=== PATIENT | male | born 2000 | race African-American/Black ===

== ENCOUNTER 2018-08-19 22:12 | Emergency (ER) | payer OTHER ==
--- NOTE | 2018-08-19 22:19 | ED Physician Documentation ---
PD HPI UPPER EXT INJURY - Stated complaint Stated Complaint: LT FINGER INJ - History obtained from History obtained from: Patient - History of Present Illness Location: Left, Finger Type of injury: Blunt / blow Timing - onset: How many hours ago (1) Timing - details: Abrupt onset Pain level now: 4 Improved by: Rest Worsened by: Moving Associated symptoms: Other (deformity). No: Weakness, Numbness, Tingling, Swelling, Discolored Similar symptoms before: Has not had sx before Recently seen: Not recently seen - Additonal information Additional information: approximately one hour prior to arrival, patient was playing basketball. The basketball struck the tip of his left fifth finger, and patient had sudden onset of pain and obvious deformity of the digit. Review of Systems Musculoskeletal: reports: Joint pain, Joint swelling Neurologic: denies: Focal weakness, Numbness PD PAST MEDICAL HISTORY - Past Medical History Past Medical History: No - Past Surgical History Past Surgical History: No - Allergies Allergies/Adverse Reactions: Allergies Allergy/AdvReac Type Severity Reaction Status Date / Time No Known Drug Allergies Allergy Verified 08/19/18 22:24 PD ED PE NORMAL - Vitals Vital signs reviewed: Yes - General General: Alert and oriented X 3, No acute distress, Well developed/nourished PD ED PE EXPANDED - Extremities Extremities: Deformity, Limited ROM, Other (left fifth finger with deformity and tenderness PIP joint) Results - Vitals Vitals: Oxygen O2 Source Room air - Rads (name of study) xrays left fifth finger Radiology: Prelim report reviewed, See rad report xrays left fifth finger post-reduction Radiology: Prelim report reviewed, See rad report Procedures - Reduction Body part reduced: Left, Finger Fracture or dislocation: Dislocation Anesthesia: Other (none) Reduction aftercare: NV intact, Xray confirms reduction, Alignment improved, Splint applied, Patient tolerated well, Other (traction-countertraction resulted in immediate reduction) PD MEDICAL DECISION MAKING - ED course Complexity details: reviewed results, re-evaluated patient, considered differential, d/w patient Departure - Departure Disposition: 01 Home, Self Care Clinical Impression: Finger dislocation Qualifiers: Encounter type: initial encounter Qualified Code(s): S63.259A - Unspecified dislocation of unspecified finger, initial encounter Condition: Good Instructions: ED Dislocation Finger Redu Follow-Up: PATRICIA Garduno [Provider Group] Discharge Date/Time: 08/19/18 23:27
--- NOTE | 2018-08-19 22:56 | XRAY Report ---
Reason: injury, deformity Procedure Date: 08/19/2018 Accession Number: [id number] / [id number] Procedure: XR - Finger(s) LT CPT Code: FULL RESULT: EXAM: LEFT FIFTH DIGIT RADIOGRAPHY EXAM DATE: 08/19/2018 10:35 PM. CLINICAL HISTORY: Injury, deformity. COMPARISON: None. TECHNIQUE: 3 views. FINDINGS: Bones: Normal. No fracture or bone lesion. Joints: Dorsal dislocation at the proximal interphalangeal joint. Soft Tissues: Soft tissue swelling. IMPRESSION: Dorsal dislocation of the middle phalanx from the proximal phalanx. No evident fracture. RADIA
--- NOTE | 2018-08-19 23:22 | XRAY Report ---
Reason: post-reduction Procedure Date: 08/19/2018 Accession Number: [id number] / [id number] Procedure: XR - Finger(s) LT CPT Code: FULL RESULT: EXAM: LEFT FIFTH DIGIT RADIOGRAPHY. EXAM DATE: 08/19/2018 10:49 PM. CLINICAL HISTORY: Post-reduction. COMPARISON: FINGER(S) LT 08/19/2018 10:20 PM. TECHNIQUE: 3 views. FINDINGS: Bones: Normal. No fracture or bone lesion. Joints: Anatomic postreduction fifth PIP joint alignment. Soft Tissues: Normal. No soft tissue swelling. IMPRESSION: Normal postreduction left fifth digit radiographs. RADIA
[2018-08-19 23:27] VITALS: BP 137/62
== END 2018-08-19 23:27 | disposition home or self-care (01) ==
LOC: ED 22:12
DX: S63.257A Unspecified dislocation of left little finger, initial encounter (principal); W21.05XA Struck by basketball, initial encounter; Y93.67 Activity, basketball
CPT/HCPCS: 26670; 73140; 99283

== ENCOUNTER 2020-02-11 03:42 | Emergency (ER) | payer OTHER ==
--- NOTE | 2020-02-11 03:43 | ED Physician Documentation ---
PD HPI ALTERED MENTAL STATUS - Stated complaint Stated Complaint: ETOH, AMS - History obtained from History obtained from: Patient, EMS - History of Present Illness Timing - onset: Today Quality / character: Agitated Contributing factors: Intoxicated Basline status: Alert and oriented X 3, Ambulatory, Independent Recently seen: Not recently seen - Additional information Additional information: BIBA in restraints. 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 Per medic report, 911 called because patient was yelling in the bathroom and had caused damage to the sink's plumbing and tore a door off its hinges. He was found to be agitated, crying and inconsolable, and unsteady to the point of nearly falling when trying to ambulate (per EMS, likely would have fallen at times during assessment if others were not there to prevent him from falling). Patient was handcuffed when EMS arrived because he was repeatedly trying to stand and ambulate but was too unsteady to do so, and he arrives in restraints for same reason; EMS says patient has not been combative or assaultive, but repeatedly trying to get off stretcher/gurney despite repeated attempts to redirect patient. Patient is crying and sobbing on arrival, repeatedly apologizing and asking to call friends and family but otherwise not providing answers to HPI/ROS questions (mostly asking to be allowed to call family and friends, apologizing, and telling me "I'm not crazy"). He has vomitus on his shirt and shorts. EMS was able to get fr om patient that he is upset due to recent event regarding patient's sister that might have involved overdose and/or suicide attempt. Review of Systems Unable to obtain: AMS, Intoxicated PD PAST MEDICAL HISTORY - Past Medical History Past Medical History: No - Allergies Allergies/Adverse Reactions: Allergies Allergy/AdvReac Type Severity Reaction Status Date / Time No Known Drug Allergies Allergy Verified 02/11/20 03:52 - Living Situation Living Situation: reports: Unknown Living Arrangement: reports: Other ([facility] barr[facility]) PD ED PE NORMAL - Vitals Vital signs reviewed: Yes - General General: Well developed/nourished - HEENT HEENT: Atraumatic, PERRL, EOMI - Neck Neck: Supple, no meningeal sign - Cardiac Cardiac: RRR, No murmur - Respiratory Respiratory: No respiratory distress, Clear bilaterally - Abdomen Abdomen: Soft, Non tender - Derm Derm: Normal color, Warm and dry - Neuro Eye Opening: Spontaneous Motor: Obeys Commands Verbal: None (does not answer orientation questions) GCS Score: 11 PD ED PE EXPANDED - General General: Other (crying, even sobbing at times, agitated but not combative and he is able to be redirected to sit on the stretcher. ) - Psych Psych: Intoxicated / AOB, Tearful, Agitated. No: Combative Results - Vitals Vitals: Vital Signs - 24 hr 02/11/20 02/11/20 02/11/20 03:47 03:52 08:54 Temperature 37.0 C 36.5 C Heart Rate 75 73 Respiratory 18 16 Rate Blood Pressure 137/87 H 132/82 H O2 Saturation 98 100 Oxygen O2 Source Room air - Labs Labs: Laboratory Tests 02/11/20 02/11/20 02/11/20 04:00 04:00 04:30 WBC RBC Hgb Hct MCV MCH MCHC RDW Plt Count MPV Neut # (Auto) Lymph # (Auto) Jay # (Auto) Eos # (Auto) Baso # (Auto) Absolute Nucleated RBC Nucleated RBC % Sodium Potassium Chloride Carbon Dioxide Anion Gap BUN Creatinine Estimated GFR (MDRD) Glucose Calcium Total Bilirubin AST ALT Alkaline Phosphatase Total Protein Albumin Globulin Albumin/Globulin Ratio Lipase TSH Urine Color YELLOW Urine Clarity CLEAR Urine pH 5.5 Ur Specific [place] 1.015 Urine Protein NEGATIVE Urine Glucose (UA) NEGATIVE Urine Ketones NEGATIVE Urine Occult Blood NEGATIVE Urine Nitrite NEGATIVE Urine Bilirubin NEGATIVE Urine Urobilinogen 0.2 (NORMAL) Ur Leukocyte Esterase NEGATIVE Ur Microscopic Review NOT INDICATED Urine Culture Comments NOT INDICATED Salicylates Urine Opiates Screen NEGATIVE Ur Oxycodone Screen NEGATIVE Urine Methadone Screen NEGATIVE Ur Propoxyphene Screen NEGATIVE Acetaminophen Ur Barbiturates Screen NEGATIVE Ur Tricyclics Screen NEGATIVE Ur Phencyclidine Scrn NEGATIVE Ur Amphetamine Screen NEGATIVE U Methamphetamines Scrn NEGATIVE U Benzodiazepines Scrn NEGATIVE Urine Cocaine Screen NEGATIVE U Cannabinoids Screen NEGATIVE Ethyl Alcohol 313.7 02/11/20 02/11/20 02/11/20 04:30 04:30 04:30 WBC 9.4 RBC 4.79 Hgb 14.5 Hct 42.2 MCV 88.1 MCH 30.3 MCHC 34.4 RDW 12.7 Plt Count 251 MPV 9.9 Neut # (Auto) 6.9 H Lymph # (Auto) 2.0 Jay # (Auto) 0.4 Eos # (Auto) 0.0 Baso # (Auto) 0.0 Absolute Nucleated RBC 0.00 Nucleated RBC % 0.0 Sodium 139 Potassium 4.0 Chloride 105 Carbon Dioxide 22 Anion Gap 12.0 BUN 11 Creatinine 1.1 Estimated GFR (MDRD) 102 Glucose 107 H Calcium 9.0 Total Bilirubin 0.8 AST 27 ALT 16 Alkaline Phosphatase 55 Total Protein 7.8 Albumin 4.5 Globulin 3.3 Albumin/Globulin Ratio 1.4 Lipase 23 TSH 0.81 Urine Color Urine Clarity Urine pH Ur Specific [place] Urine Protein Urine Glucose (UA) Urine Ketones Urine Occult Blood Urine Nitrite Urine Bilirubin Urine Urobilinogen Ur Leukocyte Esterase Ur Microscopic Review Urine Culture Comments Salicylates < 6.0 Urine Opiates Screen Ur Oxycodone Screen Urine Methadone Screen Ur Propoxyphene Screen Acetaminophen < 10 L Ur Barbiturates Screen Ur Tricyclics Screen Ur Phencyclidine Scrn Ur Amphetamine Screen U Methamphetamines Scrn U Benzodiazepines Scrn Urine Cocaine Screen U Cannabinoids Screen Ethyl Alcohol PD MEDICAL DECISION MAKING - ED course Complexity details: reviewed results, re-evaluated patient, considered differential ED course: On arrival, patient initially refused to transfer from EMS stretcher to ED stretcher until he was allowed to make phone calls to friends. After several minutes, he finally relented and shifted to ED stretcher, at which time he was provided his phone. He subsequently tried to leave ED but could not operate the door handle. I confronted him and asked that he get back onto the stretcher, as he seemed too upset and intoxicated to leave, and he did get back to room and on stretcher. He continued crying and sobbing and eventually tried to get off stretcher again; this time he nearly fell to the ground several times but staff was able to prevent him from falling (I witnessed this and he clearly would have fallen to ground if not for staff preventing this). Patient made phone calls to family and this seemed to provide him some comfort and distraction, and his command subsequently arrived. Patient's friend, whom he (patient) had called, arrived and stayed with patient for remainder of my ED shift. Patient given 2mg PO ativan and this had desired effect of sedation. Care of patient turned over to Dr. Paige at end of my shift; plan is to reevaluate patient when he is AAOx3 and sober to assess possible SI. During ED stay on my shift, patient made statements such as "I can't do this anymore", "I don't know if I want to be here". Whether he has actual suicidal thoughts or intent cannot be assessed during my shift due to significant alcohol intoxication.
[2020-02-11 04:08] LABS: MUDS CUTOFF CONCENTRATIONS CUTOFF CONC BELOW:
[2020-02-11 04:19] LABS: AMPHETAMINE SCREEN,URINE NEGATIVE (NEGATIVE); BENZODIAZEPINES SCREEN, URINE NEGATIVE (NEGATIVE); COCAINE SCREEN URINE NEGATIVE (NEGATIVE); METHADONE SCREEN, URINE NEGATIVE (NEGATIVE); METHAMPHETAMINES SCREEN, URINE NEGATIVE (NEGATIVE); OPIATE SCREEN, URINE NEGATIVE (NEGATIVE); OXYCODONE SCREEN, URINE NEGATIVE (NEGATIVE); PROPOXYPHENE SCREEN, URINE NEGATIVE (NEGATIVE); TRICYCLIC ANTIDEPRESSANT,URINE NEGATIVE (NEGATIVE)
[2020-02-11 05:02] LABS: BASOPHILS % (AUTO) 0.4 %; EOSINOPHILS % (AUTO) 0.1 %; HGB - HEMOGLOBIN 14.5 g/dL (14.0-18.0); MEAN CORPUSCULAR HEMOGLOBIN 30.3 pg (27.0-31.0); MEAN CORPUSCULAR HGB CONC 34.4 g/dL (32.0-36.0); MEAN CORPUSCULAR VOLUME 88.1 fL (80.0-94.0); MEAN PLATELET VOLUME 9.9 fL (7.4-11.4); MONOCYTES # (AUTO) 0.4 10^3/uL (0.0-1.0); MONOCYTES % (AUTO) 4.7 %; NEUTROPHILS # (AUTO) 6.9 10^3/uL (1.5-6.6); NEUTROPHILS % (AUTO) 73.5 %; PLT - PLATELET COUNT 251 10^3/uL (130-450); RED BLOOD COUNT 4.79 10^6/uL (4.70-6.10); RED CELL DISTRIBUTION WIDTH 12.7 % (12.0-15.0); WHITE BLOOD COUNT 9.4 x10^3/uL (4.8-10.8)
[2020-02-11 05:13] LABS: ACETAMINOPHEN < 10 ug/mL (10-30); ALBUMIN 4.5 g/dL (3.2-5.5); ALBUMIN/GLOBULIN RATIO 1.4 (1.0-2.2); ALKALINE PHOSPHATASE 55 IU/L (42-121); ALT ALANINE AMINOTRANSFERASE 16 IU/L (10-60); AST ASPARTATE AMINOTRANSFERASE 27 IU/L (10-42); BILIRUBIN,TOTAL 0.8 mg/dL (0.2-1.0); BUN - BLOOD UREA NITROGEN 11 mg/dL (6-20); CARBON DIOXIDE - CO2 22 mmol/L (21-32); CHLORIDE 105 mmol/L (101-111); CREATININE 1.1 mg/dL (0.6-1.2); GLUCOSE 107 mg/dL (70-100); LIPASE 23 U/L (22-51); SALICYLATE < 6.0 mg/dL; SODIUM 139 mmol/L (135-145); TOTAL PROTEIN 7.8 g/dL (6.7-8.2)
[2020-02-11 05:17] LABS: BILIRUBIN,URINE NEGATIVE (NEGATIVE); GLUCOSE, URINE (UA) NEGATIVE (NEGATIVE); KETONES,URINE (UA) NEGATIVE (NEGATIVE); LEUKOCYTE ESTERASE, URINE NEGATIVE (NEGATIVE); NITRITE,URINE NEGATIVE (NEGATIVE); OCCULT BLOOD,URINE NEGATIVE (NEGATIVE); PH,URINE 5.5 PH (5.0-7.5); PROTEIN,URINE NEGATIVE (NEGATIVE); UROBILINOGEN,URINE 0.2 (NORMAL) E.U./dL (NORMAL)
[2020-02-11 05:18] LABS: CLARITY,URINE CLEAR (CLEAR)
[2020-02-11] MEDS ORDERED: LORazepam 0.5 MG TABLET PO STA (05:26)
--- NOTE | 2020-02-11 12:02 | ED Physician Documentation ---
ED Addendum - Addendum Addendum: 02/11/20 12:00 Now more awake and alert. He had been still sleeping after change of shift initially and for several hours. He was arousable but still somewhat foggy and sleepy. He is now easily arousable and fully conversant. He denies any suicidal ideation. He states he is been feeling a little "down" about family issues. He does not have any history of major depression and no prior or current suicidal ideation. He is with a friend and the patient states he does feel comfortable talking to his coworkers about problems. At this point he is dischargeable Accompanied by his friend.
[2020-02-11 15:51] VITALS: BP 121/51
== END 2020-02-11 15:50 | disposition home or self-care (01) ==
LOC: EDBD → EDUNIT# → ED 03:42
DX: F10.129 Alcohol abuse with intoxication, unspecified (principal)
CPT/HCPCS: 36415; 80320; 80329; 81003; 83690; 99281; 99283; A9270; 80053; 80306; 80307; 81001; 84443; 85025; 87086

== ENCOUNTER 2021-07-09 06:52 | Emergency (ER) | payer OTHER ==
[2021-07-09 07:03] VITALS: BP 158/91
--- NOTE | 2021-07-09 07:32 | ED Physician Documentation ---
PD HPI LOWER EXT INJURY - Stated complaint Stated Complaint: R ANKLE INJ - Chief complaint Chief Complaint: Ext Problem - History obtained from History obtained from: Patient - History of Present Illness PD HPI LOW EXT INJURY LOCATION: Right, Ankle Type of injury: Fall, Twist Where injury occurred: Other (GYM) Timing - onset: Last night Timing - duration: Hours Timing - details: Abrupt onset, Still present Improved by: Rest, Ice, Immobilization Worsened by: Moving, Palpating Associated symptoms: Swelling. No: Weakness, Numbness, Tingling Contributing factors: No: Anticoagulated Similar symptoms before: Has not had sx before Recently seen: Not recently seen - Additional information Additional information: 20-year-old male was playing basketball yesterday when he came down and carroll his ankle. He states that somebody fell on top of him when this happened and he has pain and swelling to the lateral aspect of his ankle. He is having to limp to walk. Review of Systems Constitutional: denies: Fever Respiratory: denies: Cough GI: denies: Vomiting PD PAST MEDICAL HISTORY - Past Medical History Past Medical History: No Cardiovascular: None Respiratory: None Neuro: None Endocrine/Autoimmune: None GI: None : None HEENT: None Psych: None Musculoskeletal: None Derm: None - Past Surgical History Past Surgical History: Yes General: Appendectomy - Present Medications Home Medications: Ambulatory Orders Medication Instructions Recorded Confirmed No Known Home Medications 07/09/21 07/09/21 - Allergies Allergies/Adverse Reactions: Allergies Allergy/AdvReac Type Severity Reaction Status Date / Time No Known Drug Allergies Allergy Verified 07/09/21 07:02 - Social History Does the pt smoke?: Yes Smoking Status: Current every day smoker Does the pt drink ETOH?: Yes Does the pt have substance abuse?: No - Immunizations Immunizations are current?: Yes - POLST Patient has POLST: No PD ED PE NORMAL - Vitals Vital signs reviewed: Yes (Hypertensive) - General General: Alert and oriented X 3, No acute distress, Well developed/nourished - HEENT HEENT: Atraumatic, PERRL, EOMI - Respiratory Respiratory: No respiratory distress - Derm Derm: Normal color, Warm and dry, No rash - Extremities Extremities: No deformity, Other (There is swelling and point tenderness over the distal right fibula. 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 No acute fracture or dislocation. Radiographic findings suggestive of possible flexor tendon injury recommend clinical correlation.), EMP read indepedently, See rad report PD MEDICAL DECISION MAKING - ED course Complexity details: reviewed results, re-evaluated patient, considered differential, d/w patient ED course: 20 y/o male with a sprain to the right ankle is placed into an ankle air cast. Departure - Departure Disposition: 01 Home, Self Care Clinical Impression: Right ankle sprain Qualifiers: Encounter type: initial encounter Involved ligament of ankle: calcaneofibular ligament Qualified Code(s): S93.411A - Sprain of calcaneofibular ligament of right ankle, initial encounter Condition: Stable Instructions: ED Sprain Ankle W X Ray Follow-Up: PATRICIA Garduno [Provider Group] Comments: Claus, today it looks like you have sprained your ankle and you will likely have some swelling and tenderness associated with this and will have some difficulty walking which will improve day by day. I expect that in about 3 days time you will not require your crutches any longer. Wear the splint for at least 2 weeks and if you are doing heavy physical activity wear the splint in your boot or shoe. Forms: Activity restrictions Discharge Date/Time: 07/09/21 07:43
--- NOTE | 2021-07-09 07:51 | XRAY Report ---
PROCEDURE: Ankle 3 View RT INDICATIONS: pain/tenderness R ANKLE/FOOT TECHNIQUE: 3 views of the ankle were acquired. COMPARISON: None FINDINGS: Bones: No fractures or dislocations. Ankle mortise is normally aligned. Small osteophyte noted of t he distal tip of the medial malleolus. No suspicious bony lesions. Soft tissues: No tibiotalar joint effusion. Achilles tendon appears normal. There is soft tissue ir regularity involving the distal aspect of the expected location of the peroneal tendons with fat stra nding in Kagers fat pad IMPRESSION: 1. No acute fracture or dislocation. 2. Radiographic findings suggestive of possible flexor tendon injury. Recommend clinical correlation. No significant discrepancy with initial interpretation by overnight radiologist. Reviewed by: Ángel Nash MD on 07/09/2021 7:50 AM PDT Approved by: Ángel Nash MD on 07/09/2021 7:50 AM PDT Station ID: [id number]
== END 2021-07-09 07:43 | disposition home or self-care (01) ==
LOC: ED 06:52
DX: S93.411A Sprain of calcaneofibular ligament of right ankle, initial encounter (principal); X50.1XXA Overexertion from prolonged static or awkward postures, initial encounter; Y93.67 Activity, basketball; Y92.39 Other specified sports and athletic area as the place of occurrence of the external cause; F17.200 Nicotine dependence, unspecified, uncomplicated
CPT/HCPCS: 99282; 99283

== ENCOUNTER 2022-08-31 19:52 | Emergency (ER) | payer OTHER ==
--- NOTE | 2022-08-31 20:07 | ED Physician Documentation ---
PD HPI LOWER EXT INJURY - Stated complaint Stated Complaint: LT ANKLE SWOLLEN - Chief complaint Chief Complaint: Trauma Ext - History obtained from History obtained from: Patient - Additional information Additional information: Inversion injury of the left ankle with moderate pain although declining pain medications. This happened just earlier this evening. He is able to walk and bear weight on it. No other injuries. PD PAST MEDICAL HISTORY - Past Medical History Cardiovascular: None Respiratory: None Neuro: None Endocrine/Autoimmune: None GI: None : None HEENT: None Psych: None Musculoskeletal: None Derm: None - Past Surgical History Past Surgical History: Yes General: Appendectomy - Present Medications Home Medications: Ambulatory Orders Medication Instructions Recorded Confirmed No Known Home Medications 07/09/21 07/09/21 - Allergies Allergies/Adverse Reactions: Allergies Allergy/AdvReac Type Severity Reaction Status Date / Time No Known Drug Allergies Allergy Verified 08/31/22 19:56 - Social History Does the pt smoke?: Yes Smoking Status: Current every day smoker Does the pt drink ETOH?: Yes Does the pt have substance abuse?: No - Immunizations Immunizations are current?: Yes - POLST Patient has POLST: No PD ED PE NORMAL - Vitals Vital signs reviewed: Yes - General General: Alert and oriented X 3, No acute distress - Extremities Extremities: Other (Tender and swollen to the lateral malleolus and ATFL with significant swelling in that area. No foot, medial, proximal fibular tenderness.) - Neuro Neuro: Alert and oriented X 3, Normal speech Results - Vitals Vitals: Vital Signs - 24 hr 08/31/22 08/31/22 19:56 20:50 Temperature 36.5 C Heart Rate 108 H 99 Respiratory 16 18 Rate Blood Pressure 134/90 H 133/96 H O2 Saturation 98 99 Oxygen O2 Source Room air - Rads (name of study) Three-view x-ray of the left ankle was negative for fracture. Relevant Findings:: Final report received, EMP independent interpretation of test PD Medical Decision Making - ED course ED course: 22-year-old gentleman with a left ankle sprain. Placed in air splint for comfort. Declined pain medication here. X-ray negative. Departure - Departure Disposition: 01 Home, Self Care Clinical Impression: Left ankle sprain Qualifiers: Encounter type: initial encounter Involved ligament of ankle: anterior talofibular ligament Qualified Code(s): S93.492A - Sprain of other ligament of left ankle, initial encounter Condition: Good Record reviewed to determine appropriate education?: Yes Instructions: ED Sprain Ankle W X Ray Comments: Tylenol and/or ibuprofen as needed for pain. Keep it elevated and ice it. Follow-up with your flight surgeon for recheck within the week. Forms: Activity restrictions
--- NOTE | 2022-08-31 20:19 | XRAY Report ---
PROCEDURE: Ankle 3 View LT INDICATIONS: Trauma TECHNIQUE: 3 views of the ankle were acquired. COMPARISON: None. FINDINGS: Bones: No fractures or dislocations. Ankle mortise is normally aligned. No suspicious bony lesions . Soft tissues: No tibiotalar joint effusion. There is periarticular soft tissue swelling laterally. A chilles tendon appears normal. IMPRESSION: 1. No fracture or dislocation. Reviewed by: Bret Silva MD on 08/31/2022 8:18 PM PDT Approved by: Bret Silva MD on 08/31/2022 8:18 PM PDT Station ID: [id number]
[2022-08-31 20:51] VITALS: BP 133/96
== END 2022-08-31 21:20 | disposition home or self-care (01) ==
LOC: ED 19:52
DX: S93.492A Sprain of other ligament of left ankle, initial encounter (principal); X50.1XXA Overexertion from prolonged static or awkward postures, initial encounter; F17.200 Nicotine dependence, unspecified, uncomplicated
CPT/HCPCS: 99283